=== PATIENT | female | born 1970 | race American Indian/Alaskan Native ===

== ENCOUNTER 2019-01-15 11:01 | Emergency (ER) | payer OTHER ==
[2019-01-15 11:34] VITALS: BMI 29.8
[2019-01-15 11:35] VITALS: RESP 18; TEMP 98.3
[2019-01-15 12:44] LABS: BASO # 0.03 K/mm3 (0.0-2.0); BASO % 0.5 % (0.0-3.0); EOS % 0.5 % (1.5-5.0); HEMOGLOBIN 13.2 g/dL (12.0-16.0); LYMPH # 2.2 (1.2-3.4); LYMPH % 36.3 % (22.0-35.0); MEAN CORPUSCULAR HEMOGLOBIN 31.6 pg (25.0-35.0); MEAN CORPUSCULAR HGB CONC 35.1 g/dl (31.0-37.0); MEAN PLATELET VOLUME 10.9 fl (7.0-11.0); MONO # 0.3 (0.1-0.6); MONO % 5.2 % (1.0-6.0); RBC 4.18 10^6/uL (3.5-6.1); RED CELL DISTRIBUTION WIDTH 12.5 % (11.5-14.5); WHITE BLOOD COUNT 5.9 10^3/uL (4.5-11.0)
[2019-01-15 13:05] LABS: ALB/GLOB RATIO 1.2 (1.1-1.8); ALT/SGPT 20 U/L (7-56); AST/SGOT 19 U/L (14-36); BLOOD UREA NITROGEN 13 mg/dL (7-21); CALCIUM 9.5 mg/dL (8.4-10.5); GFR NON-AFRICAN AMERICAN > 60; INR 0.9; PROTHROMBIN TIME 10.2 SECONDS (9.4-12.5)
[2019-01-15] MEDS ORDERED: Sodium Chloride 0.9% 1,000 ML IV STA (13:11)
--- NOTE | 2019-01-15 13:23 | ED PDOC ---
Arrival/HPI - General Chief Complaint: Female Genitourinary Time Seen by Provider: 01/15/19 11:11 Historian: Patient - History of Present Illness Narrative History of Present Illness (Text): 01/15/19 13:19 A 48 year old female, whose past medical history includes hysterectomy in 2007, presents to the ED complaining of vaginal bleeding with associated minimal suprapubic abdominal pain for the past 2 days. Patient reports vaginal spotting that was slightly heavier yesterday but has improved today.Patient denies any recent trauma or injury . Patient denies any fevers, chills, headache, dizziness, chest pain, shortness of breath, dyspnea on exertion, cough, nausea, vomiting, diarrhea, back pain, neck pain, urinary/bowel changes or any other complaints. Time/Duration: < week (2 days) Symptom Onset: Gradual Symptom Course: Improving Activities at Onset: Light Context: Home Past Medical History - Provider Review Nursing Documentation Reviewed: Yes - Travel History Have you recently traveled outside [place] w/in the past 3 mons?: No - Infectious Disease Hx of Infectious Diseases: None - Cardiac Hx Hypertension: Yes - Neurological Hx Seizures: Yes - Endocrine/Metabolic Hx Diabetes Mellitus Type 2: Yes - Psychiatric Hx Substance Use: No - Surgical History Hx Cholecystectomy: Yes Hx Hysterectomy: Yes Other/Comment: Lap band. Hernia mesh - Anesthesia Hx Anesthesia: Yes Hx Anesthesia Reactions: No Hx Malignant Hyperthermia: No Family/Social History - Physician Review Nursing Documentation Reviewed: Yes Family/Social History: Unknown Family HX Smoking Status: Former Smoker Hx Alcohol Use: No Hx Substance Use: No Allergies/Home Meds Allergies/Adverse Reactions: Allergies banana Allergy (Verified 01/15/19 11:41) RASH codeine Allergy (Verified 01/15/19 11:41) RASH Review of Systems - Physician Review All systems were reviewed & negative as marked: Yes - Review of Systems Constitutional: Normal. absent: Fatigue, Fevers Eyes: absent: Vision Changes ENT: absent: Hearing Changes Respiratory: absent: SOB, Cough Cardiovascular: absent: Chest Pain Gastrointestinal: Abdominal Pain (Suprapubic abdominal pain). absent: Stool Changes, Nausea Genitourinary Female: Vaginal Bleeding. absent: Dysuria, Frequency, Hematuria, Vaginal Discharge Musculoskeletal: absent: Arthralgias, Back Pain, Neck Pain Skin: absent: Rash, Pruritis, Skin Lesions Neurological: absent: Headache, Dizziness Endocrine: absent: Diaphoresis Hemo/Lymphatic: absent: Adenopathy Psychiatric: absent: Anxiety, Depression Physical Exam Vital Signs Reviewed: Yes Vital Signs Temp Pulse Resp BP Pulse Ox 01/15/19 11:35 98.3 F 73 18 181/106 H 98 Temperature: Afebrile Blood Pressure: Hypertensive Pulse: Regular Respiratory Rate: Normal Appearance: Positive for: Well-Appearing, Non-Toxic, Comfortable Pain Distress: Mild Mental Status: Positive for: Alert and Oriented X 3 - Systems Exam Head: Present: Atraumatic, Normocephalic Mouth: Present: Moist Mucous Membranes Neck: Present: Normal Range of Motion Respiratory/Chest: Present: Clear to Auscultation, Good Air Exchange. No: Respiratory Distress, Accessory Muscle Use Cardiovascular: Present: Regular Rate and Rhythm, Normal S1, S2. No: Murmurs Abdomen: Present: Other (Soft). No: Tenderness, Distention, Peritoneal Signs, Rebound, Guarding Genitourinary/Pelvic Exam: Present: Normal External Genitalia, Vaginal Bleeding (small amount of brown discharge noted. no active bleeding noted. no ulcerations or lesions visualized. ), Other (chaparoned by Arabella sewer and inspector). No: Vaginal Discharge Back: No: CVA Tenderness Upper Extremity: Present: Normal Inspection Lower Extremity: Present: Normal Inspection Neurological: Present: GCS=15, Speech Normal Skin: Present: Warm, Dry, Normal Color. No: Rashes Psychiatric: Present: Alert, Oriented x 3 Medical Decision Making ED Course and Treatment: 01/15/19 13:29 48 year old female who presents to the ED complaining of vaginal bleeding. Plan: -- IV Fluids -- Urinalysis -- Transvaginal US -- Reassess and disposition Prior Visits: Notes and results from previous visits were reviewed. Patient was last seen in the emergency department on Progress Notes: Patient is nontoxic well-appearing in no distress with stable vital signs Patient status post hysterectomy in 2007 found to have a small amount of brown discharge noted in the vaginal vault. No signs of active bleeding lesions or u lcerations. US: Findings: Extensive bowel gas limits evaluation. The patient is status post hysterectomy. Bilateral ovaries are not visualized. No gross abnormality is seen in the pelvis. No significant free fluid appreciated. Impression: Extensive bowel gas limits evaluation. The patient is status post hysterectomy. Bilateral ovaries are not visualized. CBC within normal limits CMP glucose 353. Patient states she did not take her insulin today. Patient was advised to follow-up with the housecleaner within the next 2 days. She was advised to return immediately if she develops heavy vaginal bleeding or worsening pain. Patient given 1 L of normal saline IV bolus repeat fingerstick; 275 pt b/p remains elevated; pt states she is due to take her BP medications and insulin now. will d/c home to f/u with pmd regarding elevated BP and glucose. Patient verbalizes understanding of discharge instructions and need for immediate followup. All aspects of this case were discussed the attending of record. Impression: Vaginal bleeding Follow-up with a housecleaner within the next 2 days Take your insulin at home as prescribed for your elevated glucose. Increase fluids Return immediately if symptoms worsen persist or if new concerning symptoms develop: High fevers, increasing pain, heavy vaginal bleeding, dizziness or weakness - Lab Interpretations Lab Results: PT 10.2 SECONDS (9.4-12.5) 01/15/19 12:35 INR 0.90 01/15/19 12:35 APTT 32.0 Seconds (26.9-38.3) 01/15/19 12:35 Total Bilirubin 0.4 mg/dL (0.2-1.3) 01/15/19 12:35 AST 19 U/L (14-36) 01/15/19 12:35 ALT 20 U/L (7-56) 01/15/19 12:35 Alkaline Phosphatase 144 U/L (38-126) H 01/15/19 12:35 Total Protein 7.4 g/dL (5.8-8.3) 01/15/19 12:35 Albumin 4.0 g/dL (3.0-4.8) 01/15/19 12:35 Globulin 3.4 gm/dL 01/15/19 12:35 Albumin/Globulin Ratio 1.2 (1.1-1.8) 01/15/19 12:35 - RAD Interpretation Radiology Orders: 01/15/19 12:14 TRANSVAGINAL [US] Stat - Medication Orders Current Medication Orders: Sodium Chloride (Sodium Chloride 0.9%) 1,000 mls @ 999 mls/hr IV .Q1H1M STA Stop: 01/15/19 14:11 - Scribe Statement The provider has reviewed the documentation as recorded by the Tim Suarez Provider Scribe Attestation: All medical record entries made by the Yasmeenibjuan were at my direction and personally dictated by me. I have reviewed the chart and agree that the record accurately reflects my personal performance of the history, physical exam, medical decision making, and the department course for this patient. I have also personally directed, reviewed, and agree with the discharge instructions and disposition. Disposition/Present on Arrival - Present on Arrival Any Indicators Present on Arrival: No History of DVT/PE: No History of Uncontrolled Diabetes: No Urinary Catheter: No History of Decub. Ulcer: No History Surgical Site Infection Following: None - Disposition Have Diagnosis and Disposition been Completed?: Yes Diagnosis: Vaginal bleeding, Hyperglycemia Disposition: HOME/ ROUTINE Disposition Time: 14:00 Patient Plan: Discharge Condition: GOOD Discharge Instructions (ExitCare): Hyperglycemia, Adult (DC) Additional Instructions: Follow-up with a housecleaner within the next 2 days Take your insulin at home as prescribed for your elevated glucose. Increase fluids Return immediately if symptoms worsen persist or if new concerning symptoms develop: High fevers, increasing pain, heavy vaginal bleeding, dizziness or weakness Referrals: Sidra Johnson MD [Staff Provider] - Follow up with primary Rafita Barrera DO [Staff Provider] - Follow up with primary Aidee Floyd MD [Medical Doctor] - Follow up with primary Albert Miles MD [Staff Provider] - Follow up with primary Brie Tanner MD [Staff Provider] - [facility] [Outside] - Follow up with primary Janine Bernstein MD [Medical Doctor] - Follow up with primary Forms: [employer] ([place])
--- NOTE | 2019-01-15 13:35 | US ---
Indication: vaginal bleed hx of hysterectomy 2008 Comparison: None available Technique: Transvaginal pelvic sonogram. Findings: Extensive bowel gas limits evaluation. The patient is status post hysterectomy. Bilateral ovaries are not visualized. No gross abnormality is seen in the pelvis. No significant free fluid appreciated. Impression: Extensive bowel gas limits evaluation. The patient is status post hysterectomy. Bilateral ovaries are not visualized.
[2019-01-15] MEDS ORDERED: Insulin Regular 1 UNITS/0.01 ML ML SC STA (14:00)
[2019-01-15 14:26] LABS: URINE BILIRUBIN NEGATIVE (NEGATIVE); URINE BLOOD TRACE-INTACT (NEGATIVE); URINE GLUCOSE (UA) >=1000 mg/dL (NEGATIVE); URINE LEUKOCYTE ESTERASE NEGATIVE Leu/uL (NEGATIVE); URINE PROTEIN NEGATIVE mg/dL (<30 mg/dL); URINE UROBILINOGEN 0.2 E.U./dL (<1 E.U./dL)
[2019-01-15 14:42] LABS: URINE APPEARANCE CLEAR (CLEAR); URINE COLOR YELLOW (YELLOW)
[2019-01-15 14:43] LABS: URINE WBC 0 - 2 /hpf (0-6)
[2019-01-15 14:44] LABS: URINE BACTERIA SMALL /hpf
[2019-01-15 15:25] VITALS: BP 190/106; PULSE 78; O2SAT 99
== END 2019-01-15 15:44 | disposition home or self-care (01) ==
LOC: ED 11:01 → MERGE 11:01 → ED 15:44
DX: E11.65 Type 2 diabetes mellitus with hyperglycemia (principal); N93.9 Abnormal uterine and vaginal bleeding, unspecified; I10 Essential (primary) hypertension; Z90.710 Acquired absence of both cervix and uterus; Z87.891 Personal history of nicotine dependence
CPT/HCPCS: 76830; 80053; 81001; 82948; 85025; 85610; 85730; 96372; 99283; J7030